=== PATIENT | male | born 1950 | race Caucasian/White ===

== ENCOUNTER 2023-04-22 13:18 | Outpatient (CLI) | payer MEDICARE ==
[2023-04-20 17:15] LABS: ALANINE AMINOTRANSFERASE 21 U/L (12-78); ALBUMIN 3.3 G/DL (3.4-5.0); ALBUMIN/GLOBULIN RATIO 0.7 (1.1-1.5); ALKALINE PHOSPHATASE 66 IU/L (46-116); ANION GAP 6 (8-16); ASPARTATE AMINO TRANSFERASE 12 U/L (10-37); BILIRUBIN,TOTAL 0.3 MG/DL (0.1-1.0); BLOOD UREA NITROGEN 17 MG/DL (7-18); BUN/CREATININE RATIO 10.8 (10.0-20.0); CALCIUM 8.6 MG/DL (8.5-10.1); CHLORIDE 105 MMOL/L (99-107); CREATININE 1.57 MG/DL (0.60-1.10); GLUCOSE 92 MG/DL (70-104); POTASSIUM 3.8 MMOL/L (3.5-5.1); SODIUM 142 MMOL/L (135-145); TOTAL CARBON DIOXIDE 30.8 MMOL/L (24-32); TOTAL PROTEIN 7.8 G/DL (6.4-8.2); eGFR 44 ML/MIN
[2023-04-22] MEDS ORDERED: iohexol 350MG/ML 100ml bottle IV ONE (13:25)
== END 2023-04-22 23:59 | disposition home or self-care (01) ==
LOC: RAD 13:18
PROVIDERS: ATTEND Urology
DX: N20.1 Calculus of ureter (principal); N40.1 Benign prostatic hyperplasia with lower urinary tract symptoms; N13.8 Other obstructive and reflux uropathy; R31.21 Asymptomatic microscopic hematuria; N13.30 Unspecified hydronephrosis; K40.20 Bilateral inguinal hernia, without obstruction or gangrene, not specified as recurrent; K85.90 Acute pancreatitis without necrosis or infection, unspecified
CPT/HCPCS: 36415; 74178; 80053; J3490; Q9967

== ENCOUNTER → 2023-08-20 | Outpatient (CLI) | payer MEDICARE | END | disposition home or self-care (01) | LOC: LAB 14:25 | PROVIDERS: ATTEND Urology | DX: Z01.818 Encounter for other preprocedural examination (principal); N20.0 Calculus of kidney; I51.7 Cardiomegaly; I44.4 Left anterior fascicular block | CPT/HCPCS: 71046; 93005 ==

== ENCOUNTER 2023-12-10 12:28 | Outpatient (CLI) | payer MEDICARE | END 2023-12-10 23:59 | disposition home or self-care (01) | LOC: RAD 12:28 | PROVIDERS: ATTEND Urology | DX: N20.0 Calculus of kidney (principal); N13.30 Unspecified hydronephrosis | CPT/HCPCS: 76770 ==

== ENCOUNTER 2024-05-22 14:36 | Outpatient (CLI) | payer MEDICARE | END 2024-05-22 23:59 | disposition home or self-care (01) | LOC: 64 CT 14:36 | PROVIDERS: ATTEND Internal Medicine Infectious Disease | DX: Z12.2 Encounter for screening for malignant neoplasm of respiratory organs (principal); J98.4 Other disorders of lung; R59.0 Localized enlarged lymph nodes; I51.7 Cardiomegaly; Z87.891 Personal history of nicotine dependence | CPT/HCPCS: 71271 ==

== ENCOUNTER 2024-08-21 12:44 | Outpatient (CLI) | payer MEDICARE ==
--- NOTE | 2024-08-21 14:20 | RADIOLOGY REPORT ---
Indication: CALCULUS OF KIDNEY Technique: CT axial images of the abdomen and pelvis are obtained with intravenous contrast. Coronal and sagittal reformats were obtained. Radiation Dose Information: CTDI volume is 8 mGy. Dose-length product is 380 mGy*cm Comparison: CT CT ABDOMEN PELVIS on DOS: 04/22/23 FINDINGS: Lung bases demonstrate no pleural effusion. Adrenal glands, spleen unremarkable in shape. Pancreatic calcifications consistent with chronic panc reatitis changes. Liver unremarkable in shape. No CT evidence for cholelithiasis. Right kidney demonstrates no hydronephrosis / nephrolithiasis. Left kidney demonstrates a calculus m easuring 7 mm. No left hydronephrosis. Stomach is partially distended. Small bowel loops are demonstrating fecal like contents. Moderate to large volume stool in the colon. Bowel wall thickening and luminal narrowing of the ascending colon. Normal appendix. Abdominal aortic atherosclerotic disease. Bladder is partially distended. No free pelvic fluid. Prost ate measures 5.3 cm transversely. No inguinal lymphadenopathy. [id number] thoracolumbar degenerative disc disease. Small fat containing right inguinal hernia. IMPRESSION: Nonobstructing left renal calculus measuring 7 mm. The previously seen left ureteral calculus is reso lved. Bowel wall thickening and luminal narrowing of the ascending colon. Recommend GI consultation for co lonoscopy to exclude colonic mass /neoplasm. Prostatomegaly. Correlate with PSA levels. Fecal like contents within the small bowel which can be seen with ileus, hypomotility, bowel obstruct ion. Atherosclerotic disease. Sequela of chronic pancreatitis. Other findings as described.
== END 2024-08-21 23:59 | disposition home or self-care (01) ==
LOC: RAD 12:44
PROVIDERS: ATTEND Student in an Organized Health Care Education/Training Program
DX: N20.0 Calculus of kidney (principal); N40.0 Benign prostatic hyperplasia without lower urinary tract symptoms; N32.89 Other specified disorders of bladder; I70.0 Atherosclerosis of aorta; K86.1 Other chronic pancreatitis
CPT/HCPCS: 74176

== ENCOUNTER 2025-02-21 14:35 | Outpatient (CLI) | payer MEDICARE ==
--- NOTE | 2025-02-21 15:32 | RADIOLOGY REPORT ---
CLINICAL HISTORY: CALCULUS OF KIDNEY TECHNIQUE: Complete ultrasound exam of the kidneys and bladder was performed. COMPARISON: US ULTRASOUND KIDNEY NON VASC on DOS: 12/10/23 FINDINGS: The right kidney has normal echogenicity and measures 12.4 cm. There is no focal parenchymal abnormality or evidence for stone. There is no hydronephrosis. The left kidney has normal echogenicity and measures 10.6 cm. There is no focal parenchymal abnormality. There is a 9 mm stone. There is no hydronephrosis. The bladder is grossly unremarkable. IMPRESSION: 9 mm left renal calculus. No hydronephrosis.
== END 2025-02-21 23:59 | disposition home or self-care (01) ==
LOC: RAD 14:35
PROVIDERS: ATTEND Student in an Organized Health Care Education/Training Program
DX: N20.0 Calculus of kidney (principal)
CPT/HCPCS: 76770